=== PATIENT | female | born 1985 | race African-American/Black ===

== ENCOUNTER 2017-03-01 15:50 | Emergency (ER) | payer SELFPAY ==
[~2017-03-01] VITALS: Ht 162.6 cm; Wt 52.0 kg
[2017-03-01 15:52] VITALS: BP 133/87; PULSE 71; RESP 15; TEMP 98.5; O2SAT 100
[2017-03-01 16:32] VITALS: BP 149/85; PULSE 60; RESP 26; TEMP 98; O2SAT 99
[2017-03-01] MEDS ORDERED: SODIUM CHLOR 0.9% 1000 ML INJ 1,000 ML IV SCH (17:13)
[2017-03-01] MEDS ORDERED: DIATRIZOATE MEGLUM/DIATRIZOATE SOD 9 ML CUP PO ONE (17:15)
[2017-03-01] MEDS ORDERED: SODIUM CHLORIDE 0.9% FLUSH 10 ML FLUSH IV FLUSH PRN (17:15)
[2017-03-01] MEDS ORDERED: ONDANSETRON HCL 4 MG/2 ML VIAL IVP ONE (17:15)
[2017-03-01] MEDS ORDERED: MORPHINE SULFATE 4 MG/ML INJ IV PUSH ONE ×2 (17:15→18:45)
--- NOTE | 2017-03-01 17:18 | PD ---
HPI Chief Complaint: Abdominal Pain Time Seen by Provider: 17:09 Travel History International Travel<30 days: No Contact w/Intl Traveler<30days: No Traveled to known affect area: No History of Present Illness HPI 31-year-old female with history of bilateral tubal ligation, here for evaluation of nausea, vomiting, and abdominal pain. The patient reports several episodes of nausea and vomiting over the last 2 days. Abdominal pain started today and is located in her mid abdomen, sharp, constant, severe, worse with movements. She is also having subjective fevers and chills. She had a loose bowel movement earlier today. No urinary symptoms. No vaginal bleeding or discharge. She is sexually active with 2 partners. PFS Past Medical History Asthma: Yes Diminished Hearing: No Respiratory: Yes ?: Not LMP: 02/17/17 : 5 Para: 3 Miscarriage: 2 Tubal Ligation: Yes Past Surgical History Gynecologic Surgery: Yes Social History Alcohol Use: Yes (OCCASIONAL) Tobacco Use: Yes (1 PACK PER 3 DAYS) Substance Use: No Allergies-Medications (Allergen,Severity, Reaction): Coded Allergies: No Known Allergies (Verified Allergy, Unknown, 03/01/17) Reported Meds & Prescriptions Reported Meds & Active Scripts Active No Active Prescriptions or Reported Medications Review of Systems Except as stated in HPI: all other systems reviewed are Neg Physical Exam Narrative GENERAL: Well-developed, well-nourished, moderate distress secondary to pain. SKIN: Focused skin assessment warm/dry. HEAD: Atraumatic. Normocephalic. EYES: Pupils equal and round. No scleral icterus. No injection or drainage. ENT: Mucous membranes pink and moist. NECK: Trachea midline. No JVD. CARDIOVASCULAR: Regular rate and rhythm. RESPIRATORY: No accessory muscle use. Clear to auscultation. Breath sounds equal bilaterally. GASTROINTESTINAL: Abdomen soft, nondistended. Moderate diffuse tenderness without peritoneal signs. Normal bowel sounds. No hernias. HEATER PLANER OPERATOR: Exam performed in the presence of a female nurse. Normal external genitalia. No abnormal vaginal discharge or bleeding. Normal cervix. No CMT. No adnexal masses or tenderness. MUSCULOSKELETAL: No obvious deformities. No clubbing. No cyanosis. No edema. NEUROLOGICAL: Awake and alert. No obvious cranial nerve deficits. Motor grossly within normal limits. Normal speech. PSYCHIATRIC: Appropriate mood and affect; insight and judgment normal. Data Data Last Documented VS Vital Signs Date Time Temp Pulse Resp B/P (MAP) Pulse Ox O2 Delivery O2 Flow Rate FiO2 03/01/17 19:33 79 18 128/93 (105) 98 Room Air 03/01/17 16:32 98.0 Orders Orders Complete Blood Count With Diff (03/01/17 17:13) Comprehensive Metabolic Panel (03/01/17 17:13) Lipase (03/01/17 17:13) Prothrombin Time / Inr (Pt) (03/01/17 17:13) Urinalysis - C+S If Indicated (03/01/17 17:13) Ct Abd/Pel W Iv Contrast(Rout) (03/01/17 17:13) Iv Access Insert/Monitor (03/01/17 17:13) Ecg Monitoring (03/01/17 17:13) Oximetry (03/01/17 17:13) Ondansetron Inj (Zofran Inj) (03/01/17 17:15) Sodium Chlor 0.9% 1000 Ml Inj (Ns 1000 M (03/01/17 17:13) Sodium Chloride 0.9% Flush (Ns Flush) (03/01/17 17:15) Ed Urine Pregnancytest Poc (03/01/17 17:13) Gc And Chlamydia Pcr (03/01/17 17:13) Wet Prep Profile (03/01/17 17:13) Diatrizoate Liq ( Gastroview Liq) (03/01/17 17:15) Oral Contrast - Adult (03/01/17 17:17) Morphine Inj (Morphine Inj) (03/01/17 18:15) Morphine Inj (Morphine Inj) (03/01/17 19:00) Labs Laboratory Tests Test 03/01/17 17:00 03/01/17 17:30 03/01/17 18:35 White Blood Count 10.9 TH/MM3 Red Blood Count 4.53 MIL/MM3 Hemoglobin 14.9 GM/DL Hematocrit 43.3 % Mean Corpuscular Volume 95.7 FL Mean Corpuscular Hemoglobin 33.0 PG Mean Corpuscular Hemoglobin Concent 34.5 % Red Cell Distribution Width 12.9 % Platelet Count 330 TH/MM3 Mean Platelet Volume 9.3 FL Neutrophils (%) (Auto) 78.3 % Lymphocytes (%) (Auto) 15.8 % Monocytes (%) (Auto) 5.7 % Eosinophils (%) (Auto) 0.0 % Basophils (%) (Auto) 0.2 % Neutrophils # (Auto) 8.6 TH/MM3 Lymphocytes # (Auto) 1.7 TH/MM3 Monocytes # (Auto) 0.6 TH/MM3 Eosinophils # (Auto) 0.0 TH/MM3 Basophils # (Auto) 0.0 TH/MM3 CBC Comment DIFF FINAL Differential Comment Prothrombin Time 10.7 SEC Prothromb Time International Ratio 1.1 RATIO Blood Urea Nitrogen 14 MG/DL Creatinine 1.02 MG/DL Random Glucose 84 MG/DL Total Protein 9.1 GM/DL Albumin 4.5 GM/DL Calcium Level 10.0 MG/DL Alkaline Phosphatase 69 U/L Aspartate Amino Transf (AST/SGOT) 32 U/L Alanine Aminotransferase (ALT/SGPT) 33 U/L Total Bilirubin 0.4 MG/DL Sodium Level 132 MEQ/L Potassium Level 4.0 MEQ/L Chloride Level 97 MEQ/L Carbon Dioxide Level 25.4 MEQ/L Anion Gap 10 MEQ/L Estimat Glomerular Filtration Rate 76 ML/MIN Lipase 91 U/L Urine Color YELLOW Urine Turbidity HAZY Urine pH 6.5 Urine Specific [place] 1.020 Urine Protein TRACE mg/dL Urine Glucose (UA) NEG mg/dL Urine Ketones 40 mg/dL Urine Occult Blood TRACE Urine Nitrite NEG Urine Bilirubin NEG Urine Urobilinogen LESS THAN 2.0 MG/DL Urine Leukocyte Esterase SMALL Urine RBC 6 /hpf Urine WBC 4 /hpf Urine Squamous Epithelial Cells 7 /hpf Urine Mucus FEW /lpf Microscopic Urinalysis Comment CULT NOT INDICATED Clue Cells (Wet Prep) PRESENT Vaginal Trichomonas (Wet Prep) NONE SEEN Vaginal Yeast (Wet Prep) NONE SEEN MDM Medical Decision Making Medical Screen Exam Complete: Yes Emergency Medical Condition: Yes Medical Record Reviewed: Yes Differential Diagnosis Appendicitis, colitis, diverticulitis, peptic ulcer disease, hepatobiliary disease, pancreatitis, PID, ectopic , cystitis, UTI Narrative Course Vital signs reviewed. CBC: WBC 10.9, hemoglobin 14.9, hematocrit 43.3, platelets 3:30. CMP is markable for sodium 132, chloride 97, creatinine 1.02, GFR 76, otherwise unremarkable. Lipase is 91. UA: Hazy, 40 ketones, trace occult blood, small leukocyte esterase, 6 rbc's, few mucus. Wet prep is positive for clue cells. CT abdomen pelvis: CONCLUSION: 1. Moderate amount of free fluid in the pelvis. 2. 11 mm hypodense lesion in the superior-medial spleen having CT density characteristic of a cyst. Radiology findings were discussed with reading radiologist Dr. Gore. States that the patient had fluid in her pelvis on his CT scan in 2004. Chart review shows that she was admitted for PID then. He states that she had much greater inflammatory changes there with dilated fallopian tubes. He also states that the cyst on her spleen appears to be benign. Patient was given 2 doses of 4 mg of morphine while in the emergency department , and on reassessment she states she feels much better and would like something to eat. She will be treated for PID with Rocephin, azithromycin, and doxycycline, and will also be treated for bacterial vaginosis with Flagyl. She was advised to have her sexual partners tested and treated for STDs. She was made aware of all findings and provided a copy of her CT abdomen pelvis report. She was advised to follow-up with an INSURANCE COLLECTOR physician as well as a primary care physician this week. She is stable for discharge home with outpatient follow-up. She was advised on when to return to the emergency department. She verbalizes understanding and agreement with plan. Diagnosis Primary Impression: PID (acute pelvic inflammatory disease) Additional Impressions: Bacterial vaginosis Cyst of spleen Referrals: [facility] 3 days Primary Care Physician 3 days Additional Instructions: Follow-up with an INSURANCE COLLECTOR physician this week. Follow-up with a primary care physician this week. Take antibiotics as prescribed. Return to the emergency department for worsening symptoms or any other concerns. Scripts Hydrocodone-Acetaminophen (Hydrocodone-Acetaminophen) 5-325 mg Tab 1 TAB PO Q6H Y for PAIN, #15 TAB 0 Refills Prov: Balta Valverde MD 03/01/17 Metronidazole (Flagyl) 500 Mg Tab 500 MG PO BID for Infection for 7 Days, #14 TAB 0 Refills Prov: Balta Valverde MD 03/01/17 Doxycycline Hyclate (Doxycycline Hyclate) 100 Mg Cap 100 MG PO BID for Infection, #28 CAP 0 Refills Prov: Balta Valverde MD 03/01/17 Disposition: 01 DISCHARGE HOME Condition: Stable Balta Valverde MD Mar 01, 2017 17:18
[2017-03-01 18:01] VITALS: O2SAT 99
[2017-03-01 18:11] VITALS: BP 131/77; PULSE 63; RESP 18; O2SAT 99
[2017-03-01] MEDS ORDERED: MORPHINE SULFATE 2 MG/ML INJ IV ONE (18:15)
[2017-03-01 18:19] LABS: AUTOMATED NEUTROPHIL # 8.6 TH/MM3 (1.8-7.7); BASOPHIL % 0.2 % (0.0-2.0); HEMATOCRIT 43.3 % (35.0-46.0); HEMOGLOBIN 14.9 GM/DL (11.6-15.3); LYMPH % 15.8 % (9.0-44.0); LYMPHOCYTE # 1.7 TH/MM3 (1.0-4.8); MEAN CELL VOLUME 95.7 FL (80.0-100.0); MEAN CORPUSCULAR HGB CONC 34.5 % (32.0-36.0); MEAN PLATELET VOLUME 9.3 FL (7.0-11.0); MONO % 5.7 % (0.0-8.0); MONOCYTE # 0.6 TH/MM3 (0-0.9); NEUT % 78.3 % (16.0-70.0); PLATELET COUNT 330 TH/MM3 (150-450); RED BLOOD COUNT 4.53 MIL/MM3 (4.00-5.30); RED CELL DISTRIBUTION WIDTH 12.9 % (11.6-17.2); WHITE BLOOD COUNT 10.9 TH/MM3 (4.0-11.0)
[2017-03-01 18:34] LABS: INTERNATIONAL NORMALIZED RATIO 1.1 RATIO; PROTHROMBIN TIME - PATIENT 10.7 SEC (9.8-11.6)
[2017-03-01 18:38] LABS: BILIRUBIN, URINE NEG (NEG); BLOOD, URINE TRACE (NEG); GLUCOSE,URINE NEG (NEG); KETONE, URINE 40 mg/dL (NEG); MUCUS URINE FEW /lpf (OCC); NITRITE,URINE NEG (NEG); PH, URINE 6.5 (5.0-8.5); SQUAMOUS EPITHELIAL CELL URINE 7 /hpf (0-5); URINE COLOR YELLOW (YELLW/STRAW); URINE LEUKOCYTE ESTERASE SMALL (NEG)
[2017-03-01 18:45] LABS: ALKALINE PHOSPHATASE 69 U/L (45-117); ALT (GPT) 33 U/L (10-53); TOTAL BILIRUBIN ADULT 0.4 MG/DL (0.2-1.0); TOTAL PROTEIN 9.1 GM/DL (6.4-8.2)
[2017-03-01 18:56] LABS: ALBUMIN 4.5 GM/DL (3.4-5.0); AST (GOT) 32 U/L (15-37); BICARBONATE 25.4 MEQ/L (21.0-32.0); BLOOD UREA NITROGEN 14 MG/DL (7-18); CHLORIDE 97 MEQ/L (98-107); CREATININE 1.02 MG/DL (0.50-1.00); GLOMERULAR FILTRATION RATE 76 ML/MIN (>89); GLUCOSE,RANDOM 84 MG/DL (74-106); LIPASE 91 U/L (73-393); SODIUM (NA) 132 MEQ/L (136-145)
[2017-03-01] MEDS ORDERED: MORPHINE SULFATE 2 MG/ML INJ IV PUSH ONE (19:00)
[2017-03-01] MEDS ORDERED: IOHEXOL 350 MG/ML 10 ML VIAL (for RAD DIAG) IVCONTRAST ONE (19:07)
[2017-03-01 19:33] VITALS: BP 128/93; PULSE 79; RESP 18; O2SAT 98
--- NOTE | 2017-03-01 19:54 | RADRPT ---
EXAM DATE/TIME: 03/01/2017 19:07 [place] COMPARISON: CT ABDOMEN & PELVIS W CONTRAST, December 13, 2004, 17:19. INDICATIONS : Left lower quadrant pain and vomiting X 2 days. IV CONTRAST: 94 cc Omnipaque 350 (iohexol) IV ORAL CONTRAST: Partial prescribed oral contrast ingested. RADIATION DOSE: 4.53 CTDIvol (mGy) MEDICAL HISTORY : None SURGICAL HISTORY : None. ENCOUNTER: Initial ACUITY: 2 days PAIN SCALE: 7/10 LOCATION: Left lower quadrant abdomen TECHNIQUE: Volumetric scanning of the abdomen and pelvis was performed. Using automated exposure control and ad justment of the mA and/or kV according to patient size, radiation dose was kept as low as reasonably achievable to obtain optimal diagnostic quality images. DICOM format image data is available electro nically for review and comparison. FINDINGS: LOWER LUNGS: The visualized lower lungs are clear. LIVER: Homogeneous density without lesion. There is no dilation of the biliary tree. No calcified gallston es. SPLEEN: Normal size. 11 mm hypodense cyst in the posterior upper spleen. The lesion measures 17 Hounsfield units. PANCREAS: Within normal limits. KIDNEYS: Normal in size and shape. There is no mass, stone or hydronephrosis. ADRENAL GLANDS: Within normal limits. VASCULAR: There is no aortic aneurysm. BOWEL/MESENTERY: No dilated loops of small large bowel. Oral contrast passes two thirds of the way through the small bowel. The appendix is identified in the right lower quadrant and measures 6 mm. ABDOMINAL WALL: Within normal limits. RETROPERITONEUM: There is no lymphadenopathy. BLADDER: No wall thickening or mass. REPRODUCTIVE: No adnexal masses seen. No free fluid measuring 2.1 cm in AP dimension. INGUINAL: There is no lymphadenopathy or hernia. MUSCULOSKELETAL: Within normal limits for patient age. CONCLUSION: 1. Moderate amount of free fluid in the pelvis. 2. 11 mm hypodense lesion in the superior-medial spleen having CT density characteristic of a cyst. Handy Martin MD on March 01, 2017 at 19:48 Board Certified Radiologist. This report was verified electronically.
[2017-03-01] MEDS ORDERED: HYDR-3516 PO (20:11)
[2017-03-01] MEDS ORDERED: METR-1 PO (20:11)
[2017-03-01] MEDS ORDERED: DOXY100C PO (20:11)
[2017-03-01] MEDS ORDERED: DOXYCYCLINE HYCLATE 100 MG TAB PO ONE (20:15)
[2017-03-01] MEDS ORDERED: metroNIDAZOLE 500 MG TAB PO ONE (20:15)
[2017-03-01] MEDS ORDERED: LIDOCAINE HCL 1% 50 ML VIAL IM ONE (20:15)
[2017-03-01] MEDS ORDERED: cefTRIAXone 250 MG VIAL IM ONE (20:15)
[2017-03-01] MEDS ORDERED: AZITHROMYCIN PWD FOR SUSP 1 GM PACKET PO ONE (20:15)
== END 2017-03-01 20:57 | disposition home or self-care (01) ==
LOC: NEPD 15:50
DX: N73.0 Acute parametritis and pelvic cellulitis (principal); N76.0 Acute vaginitis; B96.89 Other specified bacterial agents as the cause of diseases classified elsewhere; D73.4 Cyst of spleen; F17.200 Nicotine dependence, unspecified, uncomplicated; R10.9 Unspecified abdominal pain; Z98.51 Tubal ligation status
CPT/HCPCS: 74177; 80053; 81001; 83690; 84703; 85025; 85610; 87210; 87491; 87591; 96361; 96372; 96374; 96375; 96376; 99285; J0696; J2270; J2405; J7030; Q9963; Q9967